=== PATIENT | female | born 1990 | race African-American/Black ===

== ENCOUNTER 2019-10-12 08:13 | Emergency (ER) | payer MEDICAID, OTHER ==
[~2019-10-12] VITALS: Ht 177.8 cm; Wt 154.2 kg
--- NOTE | 2019-10-12 08:21 | NUR ---
CAME IN FOR COUGH AND CONGESTION x 2WEEKS, TO ER BED 8, HOOKED TO MONITOR, NO RECENT TRAVEL, AFEBRILE, WARM BLANKET PROVIDED, AWAITING MD BURDICK
--- NOTE | 2019-10-12 08:23 | NUR ---
DR GUERRA AT BEDSIDE
[2019-10-12 09:07] VITALS: BP 139/80
--- NOTE | 2019-10-12 09:07 | NUR ---
Patient discharged to home in stable condition. Written and verbal after care instructions given. Patient verbalizes understanding of instruction.
== END 2019-10-12 09:07 | disposition home or self-care (01) ==
LOC: ER 08:13
DX: J40 Bronchitis, not specified as acute or chronic (principal)
CPT/HCPCS: 71045-TC

== ENCOUNTER 2019-11-07 12:50 | Emergency (ER) | payer MEDICAID ==
[~2019-11-07] VITALS: Ht 177.8 cm; Wt 120.2 kg
[2019-11-07 12:56] VITALS: BP 151/83
== END 2019-11-07 13:46 | disposition home or self-care (01) ==
LOC: ER 12:52
DX: L02.413 Cutaneous abscess of right upper limb (principal)

== ENCOUNTER 2020-01-12 08:23 | Emergency (ER) | payer MEDICAID ==
[~2020-01-12] VITALS: Ht 177.8 cm; Wt 154.2 kg
--- NOTE | 2020-01-12 08:29 | NUR ---
PT BIB SELF C/O LOW BACK PAIN FOR 1 AND 1/2 WEEKS, PT IS AAOX4, NOT IN RESPIRATORY DISTRESS, V/S STABLE, KEPT RESTED AND COMFORTABLE, WILL CONTINUE TO MONITOR.
--- NOTE | 2020-01-12 08:33 | NUR ---
URINE SPECIMEN COLLECTED AND SENT TO LAB.
--- NOTE | 2020-01-12 08:37 | NUR ---
SEEN AND EXAMINED BY .
--- NOTE | 2020-01-12 08:46 | NUR ---
ER PHLEB AT BEDSIDE FOR BLOOD DRAW.
[2020-01-12 08:50] LABS: APPEARANCE,URINE Clear (CLEAR); BACTERIA,URINE Few /HPF (None Seen); BILIRUBIN,URINE SMALL (NEGATIVE); BLOOD, URINE Trace-lysed Ery/uL (NEGATIVE); COLOR,URINE Yellow (YELLOW); KETONES,URINE Trace (NEGATIVE); LEUKOCYTE ESTERASE ,URINE Trace (NEGATIVE); NITRITE, URINE Negative (NEGATIVE); PH,URINE 5.5 (5.0-8.0); PROTEIN,URINE 30 mg/dl (NEGATIVE); SQUAMOUS EPITHELIAL CELL,UR Few /HPF (None Seen); UGLUCOSE Negative (NEGATIVE); UROBILINOGEN,URINE 0.2 EU/dL (0.2)
--- NOTE | 2020-01-12 08:50 | NUR ---
TECH AT BEDSIDE FOR US.
[2020-01-12 09:01] LABS: BASOPHILS % (AUTO) 0.4 % (0.0-2.0); EOSINOPHILS % (AUTO) 0.8 % (0.0-6.0); HEMATOCRIT 42 % (33-45); LYMPHOCYTES # (AUTO) 2.3 /CMM (0.8-4.8); LYMPHOCYTES % (AUTO) 35.3 % (20.0-44.0); MEAN CORPUSCULAR HGB CONC 34 g/dl (31.0-36.0); MEAN CORPUSCULAR VOLUME 91 fL (82-100); MONOCYTES # (AUTO) 0.5 /CMM (0.1-1.30); MONOCYTES % (AUTO) 7.5 % (2.0-12.0); NEUTROPHILS # (AUTO) 3.7 /CMM (1.8-8.9); PLATELET COUNT (AUTO) 316 /CMM (150-450); RED BLOOD CELL COUNT(AUTO) 4.55 MIL/uL (4.0-5.2); WHITE BLOOD COUNT (AUTO) 6.5 K/uL (4.3-11.0)
[2020-01-12 09:22] LABS: ALBUMIN 3.7 g/dL (3.4-5.0); BILIRUBIN,DIRECT 0.1 mg/dL (0.0-0.2); BILIRUBIN,TOTAL 0.6 mg/dL (0.2-1.0); CREATININE 0.9 mg/dL (0.6-1.3); POTASSIUM 3.9 mmol/L (3.5-5.1); TOTAL PROTEIN, SERUM 8.2 g/dL (6.4-8.2)
[2020-01-12 09:47] VITALS: BP 131/81
--- NOTE | 2020-01-12 09:47 | NUR ---
Patient discharged to home in stable condition. Written and verbal after care instructions given. Patient verbalizes understanding of instruction.
== END 2020-01-12 09:48 | disposition home or self-care (01) ==
LOC: ER 08:23
DX: R10.2 Pelvic and perineal pain (principal); N39.0 Urinary tract infection, site not specified
CPT/HCPCS: 36415; 76856-TC; 80048-TC; 80076-TC; 81000-TC; 84702-TC; 84703-TC; 85025-TC; 87086-TC; 87186-TC; 87491; 87591

== ENCOUNTER 2020-09-09 00:58 | Emergency (ER) | payer MEDICAID ==
[~2020-09-09] VITALS: Ht 177.8 cm; Wt 158.8 kg
--- NOTE | 2020-09-09 01:00 | NUR ---
BIBSELF C/O MIDSTERNAL CHEST PAIN RADIATING TO L JAW X3 DAYS, WORSE TODAY. PT AAOX4. VITAL SIGNS STABLE. AMBULATORY WITH STEADY GAIT. RESPIRATIONS EVEN AND UNLABORED. NO ACUTE DISTRESS NOTED AT THIS TIME.
--- NOTE | 2020-09-09 01:10 | NUR ---
RADIOLOGY AT BEDSIDE FOR CXR
[2020-09-09] MEDS ORDERED: ONDANSETRON 4 MG TAB.RAPDIS PO ONE (01:30)
--- NOTE | 2020-09-09 01:30 | NUR ---
IV INITIATED LAC 18G. LABS DRAWN FROM SITE. STATISTICAL TECHNICIAN AT BEDSIDE FOR COLLECTION. IV INTACT AND PATENT, PLACED ON SALINE LOCK
[2020-09-09] MEDS ORDERED: ONDANSETRON 4 MG TAB.RAPDIS ONE (01:31)
[2020-09-09 01:52] LABS: BASOPHILS % (AUTO) 0.5 % (0.0-2.0); EOSINOPHILS % (AUTO) 1.4 % (0.0-6.0); HEMATOCRIT 41 % (33-45); HEMOGLOBIN 13.9 g/dL (11.5-14.8); LYMPHOCYTES # (AUTO) 3.5 /CMM (0.8-4.8); LYMPHOCYTES % (AUTO) 46.2 % (20.0-44.0); MEAN CORPUSCULAR HGB CONC 34 g/dl (31.0-36.0); MEAN CORPUSCULAR VOLUME 90 fL (82-100); MONOCYTES # (AUTO) 0.6 /CMM (0.1-1.30); MONOCYTES % (AUTO) 7.9 % (2.0-12.0); NEUTROPHILS # (AUTO) 3.4 /CMM (1.8-8.9); PLATELET COUNT (AUTO) 323 /CMM (150-450); RED BLOOD CELL COUNT(AUTO) 4.56 MIL/uL (4.0-5.2); WHITE BLOOD COUNT (AUTO) 7.6 K/uL (4.3-11.0)
[2020-09-09 01:56] LABS: ALANINE AMINOTRANSFERASE 31 U/L (12-78); ALBUMIN 3.9 g/dL (3.4-5.0); ALKALINE PHOSPHATASE 73 U/L (46-116); ASPARTATE AMINOTRANSFERASE 25 U/L (15-37); BILIRUBIN,DIRECT 0.1 mg/dL (0.0-0.2); BILIRUBIN,TOTAL 0.6 mg/dL (0.2-1.0); CARBON DIOXIDE 25 mmol/L (21-32); CHLORIDE 104 mmol/L (98-107); CREATININE 0.9 mg/dL (0.6-1.3); GLUCOSE 108 mg/dL (74-106); POTASSIUM 3.5 mmol/L (3.5-5.1); SODIUM SERUM 141 mmol/L (136-145); UREA NITROGEN, BLOOD 16 mg/dL (7-18)
[2020-09-09 02:19] VITALS: BP 131/79
--- NOTE | 2020-09-09 02:19 | NUR ---
Patient discharged to home in stable condition. Written and verbal after care instructions given. Patient verbalizes understanding of instruction.IV removed. Catheter intact and site benign. Pressure and 4x4 applied to site. No bleeding noted.Pt ambulatory with a steady gait
== END 2020-09-09 02:20 | disposition home or self-care (01) ==
LOC: ER 01:01
DX: R07.89 Other chest pain (principal); R20.2 Paresthesia of skin
CPT/HCPCS: 36415; 71045; 80048; 80076; 84484; 85025; 93005; 99285; Q0162

== ENCOUNTER 2021-02-28 13:04 | Emergency (ER) | payer BC, OTHER ==
[~2021-02-28] VITALS: Ht 177.8 cm; Wt 130.2 kg
--- NOTE | 2021-02-28 13:22 | NUR ---
TO ER BED 1, C/O PELVIC PAIN AND DYSURIA X 3 DAYS, CHANGED TO GOWN, ATTACHED TO MONITOR, SALINE LOCK ESTABLISHED, BLOOD DRAWN.
[2021-02-28 13:40] LABS: BILIRUBIN,URINE SMALL (NEGATIVE); COLOR,URINE YELLOW (YELLOW); LEUKOCYTE ESTERASE ,URINE Negative (NEGATIVE); NITRITE, URINE Negative (NEGATIVE); PROTEIN,URINE 30 mg/dl (NEGATIVE); UGLUCOSE Negative (NEGATIVE); UROBILINOGEN,URINE 0.2 EU/dL (0.2)
[2021-02-28 13:42] LABS: BACTERIA,URINE Few /HPF (None Seen); SQUAMOUS EPITHELIAL CELL,UR Few /HPF (None Seen)
[2021-02-28] MEDS ORDERED: ONDANSETRON HCL/PF 4 MG/2 ML VIAL ONE (14:30)
[2021-02-28] MEDS ORDERED: MORPHINE SULFATE INJ 4 MG/ML DISP.SYRIN ONE (14:31)
[2021-02-28] MEDS: MORPHINE SULFATE INJ 2 MG/ML DISP.SYRIN IV ONE (14:36)
[2021-02-28] MEDS: ONDANSETRON HCL/PF 4 MG/2 ML VIAL IVP ONE (14:36)
[2021-02-28 14:38] LABS: BASOPHILS # (AUTO) 0.1 K/uL (0.0-0.2); BASOPHILS % (AUTO) 1.5 % (0.0-2.0); EOSINOPHILS % (AUTO) 1.4 % (0.0-6.0); HEMATOCRIT 42 % (33-45); HEMOGLOBIN 13.9 g/dL (11.5-14.8); LYMPHOCYTES # (AUTO) 2.1 K/uL (0.8-4.8); LYMPHOCYTES % (AUTO) 30.5 % (20.0-44.0); MEAN CORPUSCULAR HGB CONC 33 g/dl (31.0-36.0); MEAN CORPUSCULAR VOLUME 93 fL (82-100); MONOCYTES # (AUTO) 0.5 K/uL (0.1-1.30); MONOCYTES % (AUTO) 7.3 % (2.0-12.0); NEUTROPHILS # (AUTO) 4.2 K/uL (1.8-8.9); NEUTROPHILS % (AUTO) 59.3 % (43.0-81.0); PLATELET COUNT (AUTO) 292 K/uL (150-450)
[2021-02-28 14:47] LABS: CALCIUM, SERUM 9.1 mg/dL (8.5-10.1); CREATININE 0.8 mg/dL (0.6-1.3); POTASSIUM 3.8 mmol/L (3.5-5.1)
[2021-02-28 14:52] LABS: ALBUMIN 4.2 g/dL (3.4-5.0); BILIRUBIN,DIRECT 0.2 mg/dL (0.0-0.2); BILIRUBIN,TOTAL 0.7 mg/dL (0.2-1.0); TOTAL PROTEIN, SERUM 8.6 g/dL (6.4-8.2)
--- NOTE | 2021-02-28 14:59 | NUR ---
WENT TO CT
[2021-02-28] MEDS ORDERED: IOHEXOL-300 100 ML VIAL IV ONE (15:02)
[2021-02-28] MEDS ORDERED: IV NS 0.9% 250 ML IV ONE (15:03)
--- NOTE | 2021-02-28 15:23 | NUR ---
US AT BEDSIDE
[2021-02-28 16:30] VITALS: BP 110/64
[2021-02-28] MEDS ORDERED: NITR100C6 PO (16:52)
--- NOTE | 2021-02-28 17:06 | NUR ---
IV removed. Catheter intact and site benign. Pressure and 4x4 applied to site. No bleeding noted.Patient discharged to home in stable condition. Written and verbal after care instructions given. Patient verbalizes understanding of instruction.
== END 2021-02-28 17:07 | disposition home or self-care (01) ==
LOC: ER 13:25
DX: N39.0 Urinary tract infection, site not specified (principal); R10.11 Right upper quadrant pain; E66.9 Obesity, unspecified; Z68.41 Body mass index [BMI] 40.0-44.9, adult; Z60.2 Problems related to living alone
CPT/HCPCS: 36415; 74177; 76705; 76856; 80048; 80076; 81001; 84703; 85025; 96374; 96375; 99285; J2270; J2405; J7050; Q9967

== ENCOUNTER 2024-10-16 05:30 | Emergency (ER) | payer BC, MEDICAID ==
[~2024-10-16] VITALS: Ht 175.3 cm; Wt 117.5 kg
[~2024-10-16 05:30] MED LIST: NITR100C6 PO
[2024-10-16] MEDS: MORPHINE SULFATE INJ 2 MG/ML DISP.SYRIN IV ONE ×2 (06:20→06:24)
[2024-10-16] MEDS: IV NS 0.9% 1,000 ML BAG IV ONE (06:23)
[2024-10-16] MEDS: ONDANSETRON HCL/PF 4 MG/2 ML VIAL IVP ONE (06:23)
[2024-10-16] MEDS ORDERED: ONDANSETRON HCL/PF 4 MG/2 ML VIAL ONE (06:23)
[2024-10-16] MEDS ORDERED: MORPHINE SULFATE INJ 2 MG/ML DISP.SYRIN ONE (06:23)
[2024-10-16 06:46] LABS: BASOPHILS % (AUTO) 0.5 % (0.0-2.0); EOSINOPHILS # (AUTO) 0.1 K/uL (0.0-0.7); EOSINOPHILS % (AUTO) 0.8 % (0.0-6.0); HEMATOCRIT 38 % (33-45); HEMOGLOBIN 13.2 g/dL (11.5-14.8); LYMPHOCYTES # (AUTO) 1.9 K/uL (0.8-4.8); LYMPHOCYTES % (AUTO) 29.1 % (20.0-44.0); MEAN CORPUSCULAR HEMOGLOBIN 32 PG (26.0-33.0); MEAN CORPUSCULAR HGB CONC 35 g/dl (31.0-36.0); MEAN CORPUSCULAR VOLUME 91 fL (82-100); MONOCYTES # (AUTO) 0.5 K/uL (0.1-1.30); MONOCYTES % (AUTO) 7.6 % (2.0-12.0); NEUTROPHILS # (AUTO) 4.1 K/uL (1.8-8.9); PLATELET COUNT (AUTO) 251 K/uL (150-450); RED BLOOD CELL COUNT(AUTO) 4.18 MIL/uL (4.0-5.2); RED CELL DISTRIBUTION WIDTH 13.2 % (11.5-15.0); WHITE BLOOD COUNT (AUTO) 6.6 K/uL (4.3-11.0)
[2024-10-16] MEDS ORDERED: IV NS 0.9% 250 ML IV ONE (06:49)
[2024-10-16] MEDS ORDERED: IOHEXOL-300 100 ML VIAL IV ONE (06:49)
[2024-10-16] MEDS ORDERED: CT SWABBABLE VALVE TRANS SET 1 EA INFUS.SET MC ONE (06:50)
[2024-10-16 06:52] LABS: CALCIUM, SERUM 8.9 mg/dL (8.5-10.1); CREATININE 0.8 mg/dL (0.6-1.3); POTASSIUM 3.9 mmol/L (3.5-5.1)
[2024-10-16 06:56] LABS: INR 1.06 (0.91-1.10); PARTIAL THROMBOPLASTIN TIME 28.1 SEC (24.3-34.3); PROTHROMBIN TIME 11.2 SECS (9.2-11.1)
[2024-10-16 06:58] LABS: ALBUMIN 3.8 g/dL (3.4-5.0); BILIRUBIN,DIRECT 0.2 mg/dL (0.0-0.2); BILIRUBIN,TOTAL 0.9 mg/dL (0.2-1.0); TOTAL PROTEIN, SERUM 7.9 g/dL (6.4-8.2)
[2024-10-16 08:03] VITALS: BP 105/70; TEMP 98.5; O2SAT 98
== END 2024-10-16 08:13 | disposition home or self-care (01) ==
LOC: ER 05:41
DX: R10.84 Generalized abdominal pain (principal); R42 Dizziness and giddiness; R10.2 Pelvic and perineal pain; E28.2 Polycystic ovarian syndrome; Z79.899 Other long term (current) drug therapy
CPT/HCPCS: 99285; 74177; 96374; 76856; 96361; 96375; 85025; 80048; 83690; 80076; 36415; 85730; 84702; J2405; J7030; J7050; J2270; Q9967

== ENCOUNTER 2025-04-13 20:45 | Emergency (ER) | payer BC, MEDICAID ==
[~2025-04-13] VITALS: Ht 175.3 cm; Wt 108.4 kg
[2025-04-13] MEDS ORDERED: METH-647 PO (21:22)
[2025-04-13] MEDS ORDERED: ACETAMINOPHEN 325 MG TABLET ONE (21:31)
[2025-04-13] MEDS: ACETAMINOPHEN 325 MG TABLET PO ONE (21:34)
[2025-04-13 21:35] VITALS: BP 130/88; TEMP 98.3; O2SAT 98
== END 2025-04-13 21:37 | disposition home or self-care (01) ==
LOC: ER 20:49
DX: R51.9 Headache, unspecified (principal); M54.2 Cervicalgia; M54.50 Low back pain, unspecified; E28.2 Polycystic ovarian syndrome; V89.2XXA Person injured in unspecified motor-vehicle accident, traffic, initial encounter; Y93.89 Activity, other specified; Y92.410 Unspecified street and highway as the place of occurrence of the external cause; Y99.8 Other external cause status